=== PATIENT | female | born 1975 | race Caucasian/White ===

== ENCOUNTER 2022-09-05 18:37 | Emergency (ER) | payer BC ==
[~2022-09-05] VITALS: Wt 57.2 kg
[2022-09-05] MEDS ORDERED: IBUPROFEN600 MG PO (21:39)
== END 2022-09-05 22:26 | disposition home or self-care (01) ==
LOC: ED 18:37
DX: J10.1 Influenza due to other identified influenza virus with other respiratory manifestations (principal); Z20.822 Contact with and (suspected) exposure to COVID-19; F17.200 Nicotine dependence, unspecified, uncomplicated

== ENCOUNTER → 2023-11-24 | Outpatient (CLI) | payer BC ==
[~2023-11-24] MED LIST: IBUPROFEN600 MG PO
== END | disposition home or self-care (01) ==
LOC: CP 09:30
PROVIDERS: ATTEND Student in an Organized Health Care Education/Training Program
DX: R05.8 Other specified cough (principal); R06.2 Wheezing; F17.200 Nicotine dependence, unspecified, uncomplicated

== ENCOUNTER 2025-02-01 20:07 | Emergency (ER) | payer BC ==
[~2025-02-01] VITALS: Ht 162.5 cm; Wt 65.8 kg
[2025-02-01 20:45] LABS: BASO % 0.5 % (0.0-1.0); EOS # 0.1 10*3/uL (0.0-0.4); EOS % 0.8 % (1.0-4.0); HEMATOCRIT 39.6 % (37.0-47.0); MEAN CELL VOLUME 95.7 fl (81.0-99.0); MEAN CORPUSCULAR HGB 31.6 pg (27.0-31.0); MEAN CORPUSCULAR HGB CONC 33.1 g/dl (33.0-37.0); MEAN PLATELET VOLUME 9.8 fl (9.6-12.3); MONO # 0.4 10*3/uL (0.1-1.0); MONO % 4.6 % (3.0-9.0); NEUT # 7.3 10*3/uL (2.3-7.9); PLATELET COUNT AUTOMATED 270 10*3/uL (130-400); RED BLOOD COUNT 4.14 10*6/uL (4.10-5.10); RED CELL DISTRI WIDTH 12.8 % (0-14.5); WHITE BLOOD COUNT 8.6 10*3/uL (4.8-10.8)
[2025-02-01 21:04] LABS: BUN 8 mg/dl (9-23); CHLORIDE 105 mmol/L (98-107); POTASSIUM 3.5 mmol/L (3.4-5.1)
[2025-02-01] MEDS ORDERED: PREDNISONE50 MG PO (21:37)
[2025-02-01] MEDS ORDERED: ZITHROMAX250 MG PO (21:37)
[2025-02-01] MEDS ORDERED: predniSONE 20 MG TAB PO ONE (21:40)
[2025-02-01] MEDS ORDERED: AZITHROMYCIN 250 MG TAB PO ONE (21:40)
== END 2025-02-01 21:50 | disposition home or self-care (01) ==
LOC: ED 20:07
PROVIDERS: Nurse Practitioner Family
DX: J18.9 Pneumonia, unspecified organism (principal)